=== PATIENT | female | born 1950 | race Caucasian/White ===

== ENCOUNTER 2016-07-23 19:23 | Emergency (ER) | payer OTHER ==
[2016-07-23] MEDS ORDERED: ZOFRAN ODT PO ONE (20:15)
[2016-07-23] MEDS ORDERED: NORCO-7.5 PO ONE (20:15)
--- NOTE | 2016-07-23 20:18 | PROVIDER DOCUMENTATION ---
HPI-Musculoskeletal Pain/Inj - GENERAL Chief Complaint: Extremity Injury Stated Complaint: RT WRIST INJURY @1900 Time Seen by Provider: 07/23/16 20:14 Source: patient - HX OF PRESENT ILLNESS-MUSKULOSKELTAL Nature of Presenting Problem: This pt presents today c complaints of R sided wrist pain s/p FOOSH injury. NO loss of motor function or sensation. No head injury or neck pain. No other injuries or complaints. Quality of Pain: reports: aching Severity in ED: moderate Onset/Duration: just prior to arrival Timing: still present Modifying Factors: improves with: movement, palpation Any recent injury?: Yes Locality of Occurance: Home Similar Symptoms Previously?: No Recently seen or treated by another doctor?: No Review of Systems - Adult - REVIEW OF SYSTEMS - ADULT Constitutional: reports: no symptoms reported. denies: chills, fever Eyes: reports: no symptoms reported. denies: discharge, dry eyes Ears, Nose, Mouth & Throat: reports: no symptoms reported. denies: ear pain, hearing loss Cardiovascular: reports: no symptoms reported. denies: chest pain, edema Respiratory: reports: no symptoms reported. denies: chronic cough, cough Gastrointestinal: reports: no symptoms reported. denies: abdominal pain, hematemesis Genitourinary: reports: no symptoms reported. denies: dysuria, discharge Musculoskeletal: reports: bone pain, joint pain, joint swelling. denies: frequent leg cramps, muscle aches Integumentary: reports: no symptoms reported. denies: hives, hair loss Neurological: reports: no symptoms reported. denies: ataxia, dizziness/vertigo Psychiatric: reports: no symptoms reported. denies: anxiety, anti-depressant use Endocrine: reports: no symptoms reported Hematologic/Lymphatic: reports: no symptoms reported Allergic/Immunologic: reports: no symptoms reported All Other Systems: Reviewed and Negative Past History - Adult - PAST MEDICAL HISTORY-ADULT Review of Records: reports: Old Records Reviewed, Nursing Assessment Review, Medications Reviewed, Social history reviewed & non-contributory. Major Childhood Illnesses: reports: denies history Cardiovascular: reports: denies history Respiratory: reports: denies history Gastrointestinal: reports: denies history Obstetrical/Gynecological: reports: denies history Genitourinary: reports: denies history Musculoskeletal: reports: denies history Neurological: reports: denies history Endocrine/Immune: reports: denies history Other Conditions: reports: denies history Physical Exam-Injury Related - Physical Exam-Injury Related Initial Vital Signs Reviewed: Yes General Appearance: appears well, alert, no apparent distress Eyes: PERRL/EOMI, pink conjunctivae Head, Ears, Nose, Mouth & Throat: normocephalic/atraumatic, moist mucous membranes, normal ENT inspection Neck: non-tender, full range of motion, supple, normal inspection Respiratory: chest non-tender, lungs clear, normal breath sounds Cardiovascular: normal peripheral pulses, regular rate, rhythm Peripheral Pulses: radial (R): 2+, radial (L): 2+ Abdominal Exam: normal bowel sounds, non tender, soft Back Exam: normal inspection, no CVA tenderness, no vertebral tenderness Extremity: normal gait, deformity, swelling, tenderness. negative: pulse deficit, pedal edema Integumentary: normal color, warm/dry, blanching Neurologic: grossly normal, no motor/sensory deficits. negative: facial droop, focal weakness, motor weakness, sensory deficit Progress - PLAN OF CARE/RESULTS Progress/Plan/Lab Results: Orders Category Date Time Status Arm Sling DIRECTED Care 07/23/16 20:15 Active OCL Splint DIRECTED Care 07/23/16 20:15 Active WRIST COMPLETE RIGHT [RAD] Stat Exams 07/23/16 19:28 Taken Hydrocodone/APAP 7.5 mg/325 mg [Aiken-7.5] Med 07/23/16 20:15 Discontinued 1 each PO NOW ONE Ondansetron Odt [Zofran Odt] Med 07/23/16 20:15 Discontinued 4 mg PO NOW ONE Vital Signs Temp Pulse Resp BP Pulse Ox 07/23/16 19:27 97.9 F 60 20 118/61 100 - XRAY 1 XRAY: Right XRAY Study: Wrist XRAY Interpretation: Colle's fx Departure - Departure Time of Disposition Order: 20:17 DIAGNOSIS: Colles' fracture Qualifiers: Encounter type: initial encounter Fracture type: closed Laterality: right Qualified Code(s): S52.531A - Colles' fracture of right radius, initial encounter for closed fracture Disposition: HOME 01 Certified Medical Emergency: Emergent Condition: Good Additional Instructions: take medication as prescribed. Rest and elevate. Follow up with an orthopedic surgeon. ED Follow Up Instructions: You have been treated by a care provider in the Emergency Department. These instructions are being provided to you so you can have an understanding of how to care for yourself upon discharge. Upon discharge from the Emergency Department, you are responsible for making arrangements for follow-up care by a physician of your choice. Take all prescribed medications as directed. Return to the Emergency Department immediately for any new or worsening symptoms. You may call the Physician Referral phone number at [phone] to obtain a list of Physicians who are taking new patients. Prescriptions: Hydrocodone/APAP 7.5 mg/325 mg [Aiken-7.5] 1 each PO Q6H PRN PRN #12 tablet PRN Reason: Pain Ondansetron Odt [Zofran 4 mg Odt] 4 mg PO Q6H PRN PRN #20 tablet PRN Reason: Nausea Referrals: Doron Del Rosario MD [Primary Care Provider] - Cynthia Hurt MD [STAFF PHYSICIAN] - Attestation - Physician/ CAROL Attestation Patient care was provided by Advanced Practice Provider:: Yes Advanced Practice Provider:: Ruel Martines Advanced Practice Provider documentation review:: The Mid-level provider documentation, treatment plan and medical decision making was reviewed by the physician who agrees with all treatment and medical decision making by the [facility].
[2016-07-23] MEDS ORDERED: ULTRAM PO ONE (21:24)
[2016-07-23 21:39] VITALS: BP 122/72
--- NOTE | 2016-07-24 08:15 | Diag Imaging Result Document ---
PROCEDURE NAME: WRIST COMPLETE RIGHT - 07/23/2016 RIGHT WRIST THREE VIEWS: FINDINGS: There is a transverse fracture through the distal radius with compaction and dorsal angulation. Angulation is at approximately 60 degrees. There may be a tiny avulsed fragment from the ulnar styloid process as well. An additional fracture line may extend through the distal radial fragment into the radiocarpal joint. The bones are osteopenic. IMPRESSION: Fracture to the distal radius with likely a tiny avulsed fragment from the distal ulna.
== END 2016-07-23 22:07 | disposition home or self-care (01) ==
LOC: ED 19:23
DX: S52.531A Colles' fracture of right radius, initial encounter for closed fracture (principal); M25.531 Pain in right wrist; M25.431 Effusion, right wrist; W19.XXXA Unspecified fall, initial encounter
CPT/HCPCS: 99283

== ENCOUNTER 2018-08-01 11:13 | Inpatient (IN) ==
[2018-08-01] MEDS ORDERED: NS 500 ML IV ONE (11:25)
[2018-08-01 11:54] LABS: BASO# 0.02 X1000 (0.0-0.2); BASO% 0.3 % (0.0-0.8); EOS# 0.01 X1000 (0.0-0.7); EOS% 0.2 % (0.0-10.0); HEMATOCRIT 25.5 % (37.0-47.0); HEMOGLOBIN 8.4 g/dL (12.0-16.0); LYMPH# 1.53 X1000 (1.2-3.4); LYMPH% 24.4 % (20.5-51.1); MCH 30.3 PG (27-31); MCHC 32.9 g/dL (33-37); MCV 92.1 FL (81-99); MONO# 0.27 X1000 (0.11-0.59); MONO% 4.3 % (1.7-9.3); MPV 12.1 FL (7.4-10.4); NEUT# 4.45 X1000 (1.4-6.5); NEUT% 70.8 % (42.2-75.2); PLT 215 X1000 (130-400); RBC 2.77 XMIL (4.2-5.4); RDW 12.3 % (11.5-14.5); WBC 6.28 X1000 (4.8-10.8)
[2018-08-01] MEDS ORDERED: PROTONIX IV ONE (12:00)
[2018-08-01] MEDS ORDERED: SODIUM CHLORIDE 0.9% INJ ONE (12:00)
[2018-08-01 12:08] LABS: AGAP 10; ALB/GLOB RATIO 1.8; ALBUMIN 3.4 g/dL (3.5-5.0); ALKALINE PHOSPHATASE 34 U/L (32-104); BUN 41 mg/dL (8-22); CHLORIDE 106 mmol/L (98-107); COSMO 288; CREATININE 0.9 mg/dL (0.5-0.9); ESTIMATED GFR > 60; GLUCOSE 131 mg/dL (70-104); GOT 16 U/L (10-30); GPT 6 U/L (10-36); POTASSIUM 4.6 mmol/L (3.5-5.1); SODIUM 138 mmol/L (136-145); TCO2 22 mmol/L (25-35); TOTAL BILIRUBIN 0.43 mg/dL (0.20-1.00); TOTAL PROTEIN 5.3 g/dL (6.3-8.3)
[2018-08-01] MEDS ORDERED: NS 1,000 ML IV ONE (12:50)
[2018-08-01] MEDS ORDERED: TYLENOL PO PRN (13:30)
[2018-08-01] MEDS ORDERED: ZOFRAN IV PRN (13:30)
[2018-08-01] MEDS ORDERED: PROTONIX 80 MG in NS 80 ML IV SCH (13:30)
[2018-08-01 14:00] LABS: DIGOXIN 2.9 ng/mL (0.9-2.0)
[2018-08-01] MEDS: CARAFATE LIQUID PO SCH ×2 (14:03→20:03)
[2018-08-01 14:16] LABS: FERRITIN 80 ng/mL (13-150)
--- NOTE | 2018-08-01 14:31 | HISTORY AND PHYSICAL ---
HISTORY OF PRESENT ILLNESS: Ms. Tracy has reported she has lost 10 pounds over several months. She denied any abdominal pain, but her seemed to think she had some bouts of abdominal discomfort, but he noticed her stool was very black yesterday evening and this morning. Denies any bright red blood from the rectum or any sign of bleeding or gross hematuria. She has not had any trouble swallowing. No fever or chills, does appreciate any lymphadenopathy. PAST MEDICAL HISTORY: 1. She is status post hysterectomy. 2. About 10 years ago or so she had come in with a bolus of food, a corn dog lodged in her esophagus and had to be retrieved. I think she had esophageal dilatation following that. 3. She has a history of mitral valve prolapse. 4. She has had some complaints of palpitations and I think she has had some atrial fibrillation in the past as well. PAST SURGICAL HISTORY: Status post hysterectomy. FAMILY HISTORY: Mother with throat cancer. Father with cirrhosis secondary to chronic alcohol abuse. Maternal grandmother with ischemic heart disease. SOCIAL HISTORY: Denies any use of tobacco or alcohol or illicit drugs. MEDICATIONS: At this time she is on metoprolol and I think some aspirin. REVIEW OF SYSTEMS: Constitutional: The main ones are some weight loss. She estimates about 10 pounds, not sure over what span of time but at least a couple months. No fever chills. HEENT: She does not report any change in visual or hearing acuity. Neck: No neck pain. No cervical adenopathy appreciated. Respiratory: No increased work of breathing or dyspnea. Cardiovascular: No chest pain or tachy palpitation. GI/: No difficulties with swallowing or hematochezia. No gross hematuria or dysuria but stools were very black in color. Endocrinologic/Hematologic: No significant history. Neurologic: No focal complaints. PHYSICAL EXAMINATION: GENERAL: In the emergency room, awake, alert, and oriented x3. VITAL SIGNS: Temperature 97.7 degrees, pulse 85, respirations 17, blood pressure 112/45. HEENT: Pupils are equal round. NECK: Supple. No thyromegaly. LUNGS: Clear in all lung gutierrez. CARDIOVASCULAR: Regular rhythm and rate without murmur or S3. ABDOMEN: Soft. I do not appreciate any organomegaly. SKIN: Warm and dry. LABORATORY STUDIES: White count 6280, hematocrit is 25, hemoglobin 8.4, platelet count 215,000. Sodium 138, potassium 4.6, chloride 106, BUN 41, creatinine 0.9. AST is 16, ALT is 6, alkaline phosphatase is 34. Albumin 3.4. ASSESSMENT AND PLAN: 1. Dark stools, melena. I suspect upper gastrointestinal bleed with anemia. At the present time is normocytic. Hematocrit 25, hemoglobin 8.4. We are going to put her on high-dose proton pump inhibitor. I will give her 40 mg IV q.12 h. We will keep her on clear liquids for now, ask Dr. Santiago to evaluate. We will check iron studies, B12, and folate, T4 and TSH, and we will watch, check another hematocrit later this afternoon and in the morning. 2. History of atrial fibrillation. Appears she is in atrial fibrillation now so she may have chronic atrial fibrillation. Her rate appears to be controlled. She is on digoxin 125 mcg daily. She is taking Clayton I think for pain. She is on Lopressor 100 mg b.i.d. She is on Xarelto 20 mg daily. Let me talk to GI and see. We probably need to hold Xarelto for now and see if we need to get an EGD. 3. History of palpitations and I think they were related to atrial fibrillation. 4. Distant history of esophageal stricture and food bolus. She has not had any trouble swallowing. No issues with esophageal discomfort by her report. cc: Doron Del Rosario MD
[2018-08-01] MEDS ORDERED: NORCO-7.5 PO PRN (15:18)
--- NOTE | 2018-08-01 15:23 | Diag Imaging Result Doc PS360 ---
EXAM: CT ABD/PELVIS W/PO AND IV CON 08/01/2018 HISTORY: gib; abd pain; weight loss TECHNIQUE: This exam was performed using automated exposure control, adjustment of mA or kV according to patient size, and/or use of iterative reconstruction technique. COMMENT: There is linear opacity in the costophrenic sulci which may be due to atelectasis. There is a pericardial effusion which was not the case at the time the previous study. There are no previous abdominal studies available for comparison. The last thoracic study of 04/16/2011 demonstrated diffuse opacification of both lower lobes. The abdominal aorta is not distended. There is opacification of the mesenteric and renal arteries. The spleen and adrenal glands are not enlarged. The pancreas is unremarkable in appearance. The gallbladder is not distended. There are some small cysts present in the right hepatic lobe. There are also cortical cysts present in the right kidney. There is no evidence of bowel obstruction or significant adenopathy. There is some questionable mucosal thickening in the gastric antrum. The stomach is not distended however. Pelvis: There is contrast throughout the small bowel and colon. There is no evidence of appendicitis. There is no free fluid. There has been hysterectomy. The urinary bladder is not distended. There is no evidence of acute bony abnormality. IMPRESSION: Pericardial effusion. Questionable antral gastric mucosal thickening. Electronically signed by Wander Kulkarni 08/01/2018 3:21 PM
[2018-08-01] MEDS: NS 1,000 ML IV SCH (16:17)
--- NOTE | 2018-08-01 16:21 | GASTROENTEROLOGY CONSULTATION ---
DATE: 08/01/2018 REASON FOR CONSULTATION: Melena. HISTORY OF PRESENT ILLNESS: Ms. Darby Tracy is a 67-year-old woman with past medical history significant for atrial fibrillation on Xarelto who presents with acute onset melena that started last evening and this morning, per her at bedside the patient has had some nausea and dry heaving without gross hematemesis. She just complained of some mild abdominal pain diffusely. No bright red blood per rectum. No change in bowel habits recently. Otherwise, she has never had an EGD in the past. FAMILY HISTORY: No family history of GI malignancies. She denies having any acid reflux or history of liver disease. MEDICATIONS: She does take ibuprofen occasionally for pain, but no other blood thinners. REVIEW OF SYSTEMS: As per HPI, otherwise 12 point review of systems is negative. Per the , the patient does have some memory loss and is hard of hearing. PAST MEDICAL HISTORY: Atrial fibrillation on Xarelto. PAST SURGICAL HISTORY: Hysterectomy. FAMILY HISTORY: Mother had throat cancer. Father had cirrhosis secondary to alcohol abuse. No family history of GI malignancies. SOCIAL HISTORY: No smoking, alcohol or drug use. MEDICATIONS: Xarelto, digoxin, metoprolol. ALLERGIES: Penicillins and sulfa. PHYSICAL EXAMINATION: Vital Signs: Temperature 98.4, heart rate 92, respiratory rate 17, blood pressure 103/58, O2 saturation 100% on room air. General: Patient is awake, alert, in no acute distress. Very thin. HEENT: Sclerae anicteric. Moist mucous membranes. Neck: No JVD. No lymphadenopathy. Cardiac: Regular rate and rhythm. No murmurs. Lungs: Clear to auscultation bilaterally. Abdomen: Soft, nontender, nondistended. Normoactive bowel sounds. No rebound or guarding. Extremities: No clubbing, cyanosis, or edema. Warm and well perfused. NEUROLOGIC: Nonfocal. LABS: White count of 6.2, hemoglobin 8.4, platelets of 215,000. Sodium 138, potassium 4.6, chloride 106, bicarb 22, BUN 41, creatinine 0.9, glucose 131, iron 94, ferritin 80. LFTs unremarkable. Folate of 6.0, B12 of 230. Digoxin level of 2.9. IMAGING: CT abdomen and pelvis shows a pericardial effusion, questionable antral gastric mucosal thickening. ASSESSMENT AND PLAN: Ms. Darby Tracy is a 67-year-old woman with a past medical history of atrial fibrillation, on Xarelto, who presents with acute onset melena, abdominal pain. Apparently also has some weight loss. Found to have normocytic anemia with elevated BUN to creatinine ratio concerning for upper gastrointestinal bleeding. The patient currently is on IV PPI b.i.d., antiemetics, IV fluids, and is on a clear liquids. On exam, no acute findings. She appears to be stable. Differential includes peptic ulcer disease, esophagitis, gastritis. Imaging concerning for antral wall thickening consistent with what you would see for ulcers, also notable is the pericardial effusion, which of unclear etiology. Recommend further evaluation. Defer to primary. It is likely patient may need an echocardiogram to further evaluate this. Recommend keeping her n.p.o. after midnight for diagnostic EGD. We are holding her Xarelto, avoiding any blood thinners including subcu heparin. Continue to trend hemoglobin and hematocrit every 6 to 8 hours. Transfuse as needed to maintain hemoglobin between 7 and 8. Continue IV fluids. Maintain 2 large bore IVs. For atrial fibrillation, she is currently rate controlled on digoxin. She is notably B12 and folate deficient. Recommend repleting both with those and we will follow with you. Please call with any questions, concerns.
[2018-08-01] MEDS: PROTONIX 80 MG in NS 80 ML IV SCH (16:57)
[2018-08-01 18:01] LABS: HEMATOCRIT 27.4 % (37.0-47.0); HEMOGLOBIN 8.7 g/dL (12.0-16.0)
[2018-08-02 01:20] LABS: HEMATOCRIT 20.1 % (37.0-47.0); HEMOGLOBIN 6.6 g/dL (12.0-16.0)
[2018-08-02] MEDS: NS 1,000 ML IV SCH ×2 (02:20→13:23)
[2018-08-02] MEDS: CARAFATE LIQUID PO SCH (02:22)
[2018-08-02] MEDS: PROTONIX 80 MG in NS 80 ML IV SCH (05:30)
[2018-08-02 07:29] LABS: BASO# 0.01 X1000 (0.0-0.2); BASO% 0.3 % (0.0-0.8); EOS# 0.01 X1000 (0.0-0.7); EOS% 0.3 % (0.0-10.0); HEMATOCRIT 20.8 % (37.0-47.0); HEMOGLOBIN 6.6 g/dL (12.0-16.0); LYMPH# 1.15 X1000 (1.2-3.4); LYMPH% 30.4 % (20.5-51.1); MCH 29.6 PG (27-31); MCHC 31.7 g/dL (33-37); MCV 93.3 FL (81-99); MONO# 0.14 X1000 (0.11-0.59); MONO% 3.7 % (1.7-9.3); MPV 11.8 FL (7.4-10.4); NEUT# 2.47 X1000 (1.4-6.5); NEUT% 65.3 % (42.2-75.2); PLT 147 X1000 (130-400); RBC 2.23 XMIL (4.2-5.4); RDW 12.6 % (11.5-14.5); WBC 3.78 X1000 (4.8-10.8)
[2018-08-02 07:34] LABS: INR 1.18; PROTIME 15.9 Seconds (11.0-16.0)
[2018-08-02 07:35] LABS: PTT 31.9 Seconds (22.3-41.8)
[2018-08-02 07:56] LABS: AGAP 8; ALB/GLOB RATIO 1.6; ALKALINE PHOSPHATASE 32 U/L (32-104); BUN 23 mg/dL (8-22); CALCIUM 8.1 mg/dL (8.8-10.2); CHLORIDE 109 mmol/L (98-107); COSMO 277; CREATININE 0.7 mg/dL (0.5-0.9); ESTIMATED GFR > 60; GLUCOSE 82 mg/dL (70-104); GOT 18 U/L (10-30); GPT 9 U/L (10-36); MAGNESIUM 1.6 mg/dL (1.5-2.7); POTASSIUM 3.9 mmol/L (3.5-5.1); SODIUM 137 mmol/L (136-145); TCO2 20 mmol/L (25-35); TOTAL BILIRUBIN 0.48 mg/dL (0.20-1.00); TOTAL PROTEIN 4.9 g/dL (6.3-8.3)
[2018-08-02] MEDS ORDERED: LANOXIN PO SCH (09:00)
[2018-08-02] MEDS ORDERED: DIPRIVAN 1% ONE (09:38)
[2018-08-02] MEDS ORDERED: XYLOCAINE-MPF 2% ONE (09:38)
[2018-08-02] MEDS ORDERED: EPINEPHRINE SYRINGE ONE (10:18)
[2018-08-02] MEDS: FOLIC ACID PO SCH (12:22)
--- NOTE | 2018-08-02 12:31 | OPERATIVE NOTE ---
PROCEDURE DATE: 08/02/2018 EXAM: Upper gastrointestinal endoscopy. PROVIDER: Wu Santiago MD. INDICATIONS: Acute blood-loss anemia, melena. MEDICATIONS: Monitored anesthesia care. PROCEDURE: Prior to the procedure, a history and physical was performed. The patient medications and allergies were reviewed. The patient's tolerance to previous anesthesia was also reviewed. The risks and benefits of the procedure and sedation options and risks were discussed with the patient. All questions were answered and informed consent was obtained. After reviewing the risks and benefits, the patient was deemed in satisfactory condition to undergo the procedure. The endoscope was passed under direct visualization. Throughout the procedure, the patient's blood pressure, pulse and oxygen saturation were monitored continuously. The endoscope was introduced in the mouth, and advanced to the second part of the duodenum. The upper GI endoscopy was accomplished without difficulty. The patient tolerated the procedure well. COMPLICATIONS: No immediate complications. ESTIMATED BLOOD LOSS: Minimal. FINDINGS: - The esophagus was normal. The Z-line was regular at 40 cm from incisors. - Within the anterior portion of antrum, there was a 2 cm cratered ulcer with a pigmented spot at the base. Two milliliters of epinephrine diluted 1:10,000 was injected submucosally around the ulcer with good blanching. Subsequently, monopolar probe was used to cauterize the base of the ulcer. There was no bleeding at the end of the procedure. Random biopsies of the stomach were obtained with cold biopsy forceps to rule out H. pylori. - The duodenal bulb and second portion of the duodenum were normal. - Retroflexion within the stomach showed a small hiatal hernia. IMPRESSION: 1. Gastric ulcer status post treatment with epinephrine and cautery. Rando gastric biopsies obtained. 2. Small hiatal hernia. RECOMMENDATIONS: - Await pathology results. - Continue IV PPI b.i.d. Start clear liquids. - Avoid NSAIDs and blood thinners. - Recommend transfusing 1 unit of packed red blood cells given hemoglobin of 6.6. - Start iron replacement therapy twice a day. - The patient will need a repeat EGD in 2 months to assess ulcer healing. We will follow with you. Please call with any questions or concerns. MTDD
[2018-08-02 12:35] LABS: HEMATOCRIT 25.2 % (37.0-47.0); HEMOGLOBIN 7.9 g/dL (12.0-16.0)
--- NOTE | 2018-08-02 13:25 | PROGRESS NOTE ---
DATE: 08/02/2018 Ms. Tracy still has a little bit of nausea but feel overall feels better. OBJECTIVE: Vital Signs: Temp 97.8 degrees, pulse 96, respirations 16, blood pressure 99/58. HEENT: Pupils are equal and round. Lungs: Are clear in all lung gutierrez. Cardiovascular: Regular rate without murmur or S3. Abdomen: Soft. Skin: Warm and dry. LABORATORY DATA: Hematocrit 25, hemoglobin 7.9. This is after transfusion I think of 2 units of packed red blood cells. ASSESSMENT AND PLAN: 1. Acute blood loss anemia. 2. Gastric ulcer status post epinephrine and cautery. Gastric biopsies obtained. Small hiatal hernia. Continue to give her some iron. Continue proton pump inhibitors. Continue present fluids, normal saline 85 mL an hour. cc: Doron Del Rosario MD
[2018-08-02] MEDS ORDERED: SODIUM CHLORIDE 0.9% INJ SCH (13:45)
[2018-08-02 21:24] LABS: HEMATOCRIT 29.8 % (37.0-47.0)
[2018-08-03 00:01] LABS: URINE SOURCE CLEAN CATCH
[2018-08-03] MEDS ORDERED: PROTONIX IV SCH (00:01)
[2018-08-03] MEDS: NS 1,000 ML IV SCH ×2 (00:02→13:29)
[2018-08-03 00:05] LABS: BILIRUBIN URINE NEGATIVE (NEGATIVE); BLOOD URINE TRACE (NEGATIVE); COLOR YELLOW; GLUCOSE URINE NEGATIVE (NEGATIVE); KETONE URINE NEGATIVE (NEGATIVE); LEUKOCYTES URINE LARGE (NEGATIVE); NITRITE URINE NEGATIVE (NEGATIVE); PROTEIN URINE TRACE mg/dL (NEGATIVE); SP GRAVITY URINE 1.021; TURBIDITY URINE HAZY (CLEAR); UR EPITHELIAL CELLS <10 /HPF (<10); URINE BACTERIA 1+ /HPF; URINE RBC <10 /HPF (<10); URINE WBC TNTC /HPF (<10); UROBILINOGEN URINE NORMAL (NORMAL)
[2018-08-03] MEDS: FOLIC ACID PO SCH (10:38)
--- NOTE | 2018-08-03 12:07 | PROVIDER PROGRESS NOTE ---
Progress Note SUBJECTIVE: No acute overnight events. No N/V/F, melena, CP, SOB, abdominal pain. OBJECTIVE: Last Vital Signs Temp 98.8 F 08/03/18 04:00 Pulse 82 08/03/18 10:38 Resp 22 08/03/18 08:00 BP 102/54 08/03/18 08:00 Pulse Ox 94 L 08/03/18 11:16 Height 5 ft 7 in Weight 81 lb GEN: thin, NAD; cachetic HEENT: anicteric, MMM NECK: supple, no JVD CV: RRR, no murmurs PULM: CTAB, no wheezing ABD: soft NT/ND, BS present EXT: no cce NEURO: nonfocal LABS: hgb 10 this AM 08/02/18 07:00 WBC Hgb Plt Count Sodium 137 Potassium 3.9 D Chloride 109 H Carbon Dioxide 20 L BUN 23 H Creatinine 0.7 EGD 08/02 FINDINGS: - The esophagus was normal. The Z-line was regular at 40 cm from incisors. - Within the anterior portion of antrum, there was a 2 cm cratered ulcer with a pigmented spot at the base. Two milliliters of epinephrine diluted 1:10,000 was injected submucosally around the ulcer with good blanching. Subsequently, monopolar probe was used to cauterize the base of the ulcer. There was no bleeding at the end of the procedure. Random biopsies of the stomach were obtained with cold biopsy forceps to rule out H. pylori. - The duodenal bulb and second portion of the duodenum were normal. - Retroflexion within the stomach showed a small hiatal hernia. A/P: Ms. Darby Tracy is a 67-year-old woman with a past medical history of atrial fibrillation, on Xarelto, who presents with acute onset melena, abdominal pain, and abnormal weight loss. Found to have normocytic anemia with normal iron leves, but B12 and folate deficient. s/p 1 unit pRBC. EGD yesterday revealed small hiatal hernia and 2cm cratered antral ulcer with pigmented base s/p epinephrine and cautery. Random gastric biopsies obtained to rule out H pylori. Her PUD is likely secondary to NSAID use. #Bleeding gastric ulcer: hgb stable - continue high dose PPI PO BID upon discharge - avoid NSAIDs and aspirin - will follow pathology as outpatient - ok to resume Xarelto upon discharge - she will need repeat EGD in 2 months to check for ulcer healing #B12 and folate deficiency: continue replacement therapy #Abnormal weight loss: no DEBORAH; patient uptodate with mammogram; will plan on close outpatient follow-up in clinic; ultimately will need colonoscopy scheduled with next EGD #Pericardial effusion: unclear etiology; defer workup to primary team #Protein calorie malnutrition: high protein calorie diet; ensure with meals Patient is ok from GI perspective to be discharged with 2 week follow-up in clinic. Will sign off. Please call with questions
[2018-08-03 12:54] VITALS: BP 112/54
--- NOTE | 2018-08-03 15:28 | DISCHARGE SUMMARY ---
ADMISSION DATE: 08/01/2018 DISCHARGE DATE: 08/03/2018 She is followed by Edith Ochoa, Ms. Tracy has lost about 10 pounds in the last several months complaining of epigastric abdominal pain only for about 24 hours or so, has not had pain for longer than that by her report. She had bouts of abdominal discomfort but not really pain. Noticed the stools were very black and dark. Appetite has been very poor. Denies fever or chills. No gross hematuria, dysuria, no trouble swallowing. PAST MEDICAL HISTORY: 1. Hysterectomy. 2. A little over 10 years ago she had a food bolus stuck in the esophagus which required EGD dislodging and esophageal dilatation. She diagnosed mitral valve prolapse, she has had some complaints of some atrial fibrillation. PAST SURGICAL HISTORY: Status post hysterectomy. So admitted and concern about upper GI bleed. EGD was performed per Dr. Santiago and found a gastric ulcer which he applied epinephrine and cauterization was actively bleeding and also small hiatal hernia. Recommended she stay on proton pump inhibitors at high dose and want her to stay away from nonsteroidal anti-inflammatories and blood thinners at this time and we gave her I think a total 2 units packed red blood cells and started iron therapy twice a day. He wants to repeat an EGD in 2 months. Also she needs a followup colonoscopy. They were requesting to go home and so I will set them up to go home. HOME MEDICATIONS: She is on digoxin 125 mcg daily, getting Rodanthe as needed, Lopressor 100 mg p.o. b.i.d. and Xarelto 20 mg a day. I will have her start back on her Xarelto after another week, folic acid will give her 1 mg p.o. daily and I will have her on Protonix 40 mg p.o. b.i.d. and I will give her prescription for Icar C which she could start at later point depending what her primary care and Dr. Santiago would like to do. I did discuss the importance of increasing her weight she is down to a 81 pounds. She has some temporal wasting. She has got severe protein calorie malnutrition and so she is going to have to increase her p.o. intake, emphasized need to stay away from nonsteroidal anti-inflammatories and aspirin and I will have her start Xarelto back in 1 week. cc: Doron Del Rosario MD
--- NOTE | 2018-08-04 08:05 | EKG Report ---
Test Performed on : 08/02/2018 08:27:27 AM Test Reason : afib Blood Pressure : / mmHG Vent. Rate : 095 BPM Atrial Rate : 220 BPM P-R Int : 000 ms QRS Dur : 066 ms QT Int : 304 ms P-R-T Axes : 000 061 257 degrees QTc Int : [address] & T wave abnormality, consider inferior ischemia ST & T wave abnormality, consider anterolateral ischemia Abnormal ECG When compared with ECG of 18-APR-2011 06:02, Vent. rate has decreased BY 61 BPM T wave inversion more evident in Inferior leads T wave inversion now evident in Anterolateral leads Unconfirmed Result
[2018-08-04] MEDS ORDERED: PROTONIX IV SCH (13:19)
== END 2018-08-03 16:57 | disposition home or self-care (01) | DRG 377 ==
LOC: SUPCPDRO → ED 11:13 → 3N 14:56
PROVIDERS: ATTEND Emergency Medicine
PROC: EN.HEAT (2018-08-02 09:45)
CPT/HCPCS: 36430; 74177; 80053; 80162; 81001; 82270; 82607; 82728; 82746; 82948; 83540; 83550; 83735; 84439; 84443; 85014; 85018; 85025; 85610; 85730; 86850; 86900; 86901; 86920; 87088; 88305; 88312; 93005; 93010; 94761; 94799; 96374; 99285; A9270; C9113; J0171; J7030; J7040; P9016; Q9967; S0164; XXXXX